=== PATIENT | male | born 1990 | race Caucasian/White ===

== ENCOUNTER 2022-10-11 15:08 | Outpatient (CLI) | payer BC, SELFPAY ==
--- NOTE | ~2022-10-11 | XR_ITS ---
EXAMINATION: XR knee RT min 4V, XR knee LT min 4V DATE: 10/11/2022 15:42 INDICATION: Bilateral knee pain TECHNIQUE: 1. Anteroposterior, 2 oblique and crosstable lateral views of the left knee were obtained 2. Anteroposterior, 2 oblique and crosstable lateral views of the right knee were obtained COMPARISON: None. FINDINGS: Alignment is normal at both knees. No fracture. Joint spaces appear normal on nonweightbearing imagi ng. At the right knee is a 1.8 x 1.4 cm lytic lesion with thin sclerotic margins at the lateral inter condylar eminence likely representing an intraosseous ganglion cyst or geode. No joint effusion/layer ing lipohemarthrosis at either the left or right knee. Soft tissues are unremarkable. IMPRESSION: 1. Negative left knee radiographs. 2. 1.8 x 1.4 cm cystic lesion at the lateral intercondylar eminence of the right knee most likely eit her degenerative chondral cyst or intraosseous ganglion cyst which could arise from the tibial roots of one of the menisci or cruciate ligaments. Reviewed, dictated and finalized at location A. SWARE SELECTOR IMPRESSION: 1. Negative left knee radiographs. 2. 1.8 x 1.4 cm cystic lesion at the lateral intercondylar eminence of the righ t knee most likely either degenerative chondral cyst or intraosseous ganglion c yst which could arise from the tibial roots of one of the menisci or cruciate l igaments.
== END 2022-10-11 15:09 | disposition home or self-care (01) ==
LOC: ANHIMG 15:11
PROVIDERS: PCP Family Medicine; Visit Provider Nurse Practitioner Family
DX: M25.569 Pain in unspecified knee (principal); G89.29 Other chronic pain; R93.6 Abnormal findings on diagnostic imaging of limbs
CPT/HCPCS: 73564

== ENCOUNTER 2025-06-03 15:09 | Outpatient (CLI) | payer BC, SELFPAY ==
--- NOTE | ~2025-06-03 | XR_ITS ---
EXAMINATION: XR knee LT min 4V, 06/03/2025 15:12 CDT HISTORY: M25.562 - Pain in left knee COMPARISON: No comparisons available. Findings: No acute fracture or malalignment. No significant degenerative changes. Soft tissues unremarkable. Impression: No acute fracture or malalignment. Reviewed, dictated and finalized at location P. Impression: No acute fracture or malalignment.
== END 2025-06-03 15:10 | disposition home or self-care (01) ==
LOC: MICIMG 15:10
PROVIDERS: PCP Family Medicine; Visit Provider Nurse Practitioner Family
DX: M25.562 Pain in left knee (principal)
CPT/HCPCS: 73564

== ENCOUNTER 2025-06-14 13:23 | Outpatient (CLI) | payer BC, SELFPAY ==
--- NOTE | ~2025-06-14 | MR_ITS ---
EXAMINATION: MR knee LT wo con DATE: 06/14/2025 14:12 INDICATION: Medial left knee pain. TECHNIQUE: Magnetic resonance imaging (MRI) of the left knee was performed without intravenous contrast. Sequences included axial PD-weighted FS FSE, coronal PD-weighted FSE and PD-weighted FS FSE, sagittal PD-weighted FSE, and sagittal T2-weighted FS FSE. COMPARISON: Left knee radiographs 06/03/2025 FINDINGS: Medial compartment: There is an undersurface horizontal tear involving body and posterior horn of medial meniscus. There is cartilage surface irregularity of tibial condyle and femoral condyle. Osteophytes are noted. Lateral compartment: Lateral meniscus is normal. Lateral compartment cartilage is normal. There are tiny osteophytes. Patellofemoral compartment: There is deep partial-thickness cartilage loss of patellar lateral facet. Trochlear cartilage is normal. There are tiny osteophytes. Ligaments and tendons: The anterior and posterior cruciate ligaments are normal. There is a sprain of medial collateral ligament characterized by thickening and increased signal intensity proximally and surrounding edema. There are changes of prior sprain of lateral collateral ligament characterized by thickening and increased signal intensity proximally. There is mild patellar tendinopathy. Fluid: There is a small knee joint effusion. There is a small Ni's cyst. There is mild prepatellar and superficial infrapatellar bursitis. IMPRESSION: 1. Moderate chondrosis of patellofemoral compartment and mild chondrosis of medial compartment. 2. Tear of medial meniscus. 3. Mild sprain of medial collateral ligament (grade 2). Reviewed, dictated and finalized at location E. IMPRESSION: 1. Moderate chondrosis of patellofemoral compartment and mild chondrosis of med ial compartment. 2. Tear of medial meniscus. 3. Mild sprain of medial collateral ligament (grade 2).
== END 2025-06-14 13:24 | disposition home or self-care (01) ==
LOC: MICIMG 13:24
PROVIDERS: PCP Family Medicine; Visit Provider Nurse Practitioner Family
DX: M25.462 Effusion, left knee (principal); S83.242D Other tear of medial meniscus, current injury, left knee, subsequent encounter; S83.412D Sprain of medial collateral ligament of left knee, subsequent encounter; X58.XXXD Exposure to other specified factors, subsequent encounter
CPT/HCPCS: 73721

== ENCOUNTER 2025-07-07 00:44 | Day surgery (SDC) | payer BC, SELFPAY ==
--- NOTE | 2025-07-01 10:52 | SUR.PREOP ---
[facility] has started construction of its new state of the art ER which will open Spring 2026. With this, we anticipate parking may be a challenge for some our surgical patients and families. Parking spaces are limited but are available for all Surgical, obstetrics, and ER patients sharing this lot. If you arrive and find you are having a hard time finding a parking space, please note that we understand the challenges, please drive around the hospital and park near Hospital Entrance 1. When you enter this entrance, you can ask a volunteer to direct or take you back to the surgical waiting area to check in. We appreciate everyone?s understanding of these expected challenges while we build for your future. Report to the Outpatient Waiting Room, entrance under the green pavilion located off [address], at time _9AM__ on date __07/07/25__. Planned Procedure Time: _11AM__.? Time changes happen often and if your time is changed the preop area will call you the afternoon before. - You and your visitor will be asked to self-screen and do not enter if you have any COVID symptoms. Please call surgeon if you need to reschedule. - A mask is optional within the hospital at this time. Patients may have clear liquids (water, carbonated beverages, clear teas, apple juice) until 3 hours prior to surgery with a maximum of 20 ounces. - No food from midnight until time of surgery and no smoking, or chewing tobacco (or any form of nicotine). No chewing gum, candy or mints. Take only the following medications with a SIP of water on the morning of surgery: _None__ DO NOT STOP ANY OF YOUR OTHER PRESCRIPTION MEDICATIONS PRIOR TO SURGERY EXCEPT THE FOLLOWING Hold all vitamins and supplements for 3 days per anesthesiologist. Medications to discontinue per physician _consult provider regarding meloxicam regimen__ Date to take last dose__07/03/25__ Please no make-up, nail greek, hairspray, perfume, deodorant, or body powder the day of surgery.? No jewelry (including any body piercings) or valuables the day of surgery, leave them at home.? Please take a shower or bath the night before, or the morning of, surgery with an antibacterial soap.? Wear comfortable, loose fitting clothing.? - Jewelry must be removed prior to entering the operating room.? Rings and piercings that are not removed may be cut off. - The hospital will not accept responsibility for valuables.? - Please leave all valuables, including medications, at home the day of surgery. If you are going home after surgery, a licensed dedicated truck driver must drive you home.? - NO public transportation without another adult if you receive anesthesia. - We recommend that an adult stay with you for 24 hours following discharge. - We also recommend that you do not drive, make important decision, drink alcoholic beverages, or take any drugs that were not prescribed by your health care provider for at least 24 hours after your discharge time. Follow any additional instructions given to you from your surgeon. Telephone instructions given to __Jake__and asked if any additional questions and then verbalized understanding. Patient advised to call surgeon office or pre surgery nurse liaison [phone] if any additional questions.
[2025-07-01 10:57] VITALS: BMI 35.4
[2025-07-07] VITALS (8 sets, daily range): BP systolic 127–152; BP diastolic 66–75; PULSE 53–90; RESP 13–20; TEMP 36.3–36.6; O2SAT 91–99; BMI 35.2
--- OUTSIDE RECORDS SUMMARY | 2025-07-07 00:47 | XMS_ITS | Clinical Summary ---
Author Organization [facility] Address [address] [place] [id number] Care Team Providers Care Vp Scientific Name Role Phone Unknown, Notinfile Primary Care Provider Unavail able Allergies No known active allergies Medications albuterol HFA (PROVENTIL HFA,VENTOLIN HFA,PROAIR HFA) 90 mcg/actuation inhaler Inhale 1-2 puffs every 4 (four) hours as needed 10/22/2018 Active Active Problems Problem Noted Date Diagnosed Date Flu-like symptoms 10/22/2018 Social History Tobacco Use Types Packs/Day Years Used Date Smoking Tobacco: Never Assessed Sex and Gender Information Value Date Recorded Sex Assigned at Not on file 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 Gender Identity Not on file Sexual Orientation Not on file Last Filed Vital Signs Vital Sign Reading Time Taken Comments Blood Pressure 142/84 09/04/2021 10:40 AM CHAIN HOIST OPERATOR Pulse 82 09/04/2021 10:40 AM CHAIN HOIST OPERATOR Temperature 36.9 C (98.4 F) 09/04/2021 10:40 AM CHAIN HOIST OPERATOR Respiratory Rate 18 09/04/2021 10:40 AM CHAIN HOIST OPERATOR Oxygen Saturation 97% 09/04/2021 10:40 AM CHAIN HOIST OPERATOR Inhaled Oxygen Concentration - - Weight 136.1 kg (300 lb) 09/04/2021 10:40 AM CHAIN HOIST OPERATOR Height - - Body Mass Index - - Plan of Treatment Not on [place] [id number] [place] [employer]F P[place] [facility] OOS Care Teams Vp Scientific Relationship Specialty Start Date End Date Unknown, Notinfile PCP - General 12/11/18
--- OUTSIDE RECORDS SUMMARY | 2025-07-07 00:47 | XMS_ITS | Clinical Summary ---
Author Organization [facility] Address [address] [place] [address] Phone Care Team Providers Care National Account Manager Name Role Phone Provider, Unknown Primary Care Provider Unavaila ble Allergies No known active allergies Medications albuterol 108 (90 Base) MCG/ACT Aerosol Solution take 1-2 Puffs by inhalation every 4 hours as needed for Wheezing. 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 Gender Identity Not on file Sexual Orientation Not on file Last Filed Vital Signs Vital Sign Reading Time Taken Comments Blood Pressure 130/70 10/22/2018 8:29 AM PIG FURNACE OPERATOR Pulse 90 10/22/2018 8:29 AM PIG FURNACE OPERATOR Temperature 37.6 C (99.6 F) 10/22/2018 8:29 AM PIG FURNACE OPERATOR Respiratory Rate 16 10/22/2018 8:29 AM PIG FURNACE OPERATOR Oxygen Saturation 97% 10/22/2018 8:29 AM PIG FURNACE OPERATOR Inhaled Oxygen Concentration - - Weight 122.5 kg (270 lb) 10/22/2018 8:29 AM PIG FURNACE OPERATOR Height 193 cm (6' 4) 10/22/2018 8:29 AM PIG FURNACE OPERATOR Body Mass Index 32.87 10/22/2018 8:29 AM PIG FURNACE OPERATOR Plan of Treatment Health Maintenance Due Date Last Done Comments Hepatitis C Virus (HCV) Screening 1989 TdaP Immunization 1989 Hepatitis B Immunization (1 of 3 - 19+ 3-dose series) 2008 Human Papillomavirus (HPV) Immunization (1 - 3-dose SCDM series) 2016 Influenza Immunization (#1) 2025 SARS-COV-2 Immunization (1 - 2023- season) 2025 Respiratory Syncytial Virus (RSV) Immunization (Adult) (1 - 1-dose 75+ series) 2064 Meningococcal Immunization (ACWY) Aged Out No longer eligible based on patient's age to complete this topic Pneumococcal Immunization Combined Aged Out No longer eligible based on patient's age to complete this topic Rotavirus Immunization Aged Out No lo nger eligible based on patient's age to complete this topic Insurance [facility] Care Teams National Account Manager Relationship Specialty Start Date End Date Provider, Unknown UNKNOWN PCP - General 10/22/18
[2025-07-07] MEDS: LACTATED RINGERS 1,000 ML 30 ML IV CONT ×2 (06:35→09:17)
[2025-07-07] MEDS: CELECOXIB 200 MG CAPSULE PO (06:44)
[2025-07-07] MEDS: ACETAMINOPHEN 500 MG TABLET 1000 MG PO (06:44)
--- NOTE | 2025-07-07 07:24 | WPDHPUPDATE1 ---
History and Physical Update Update Date/Time: 07/07/25 07:24 History and Physical has been reviewed, including an updated exam of the patient. There are NO changes in the patient's condition. Risks, benefits, and alternatives have been discussed and questions answered. Patient agrees to proceed with procedure.
--- NOTE | 2025-07-07 07:26 | P.PNAN_ITS ---
Anes - Initial Pre Proc Eval Procedure: Operation Date: 07/07/25 07:30 Proposed Procedures p Left Knee Arthroscopy, Proceed As Indicated - Issa Perez MD Date/Time: 07/07/25 07:26 Surgeon: Issa Perez MD Pre Op Diagnosis: left knee medial meniscus tear Patient Data Age: 34 Gender: M Height: 1.93 m Weight: 131.5 kg Last Vital Signs Temp 97.9 F 07/07/25 06:05 Pulse 53 L 07/07/25 06:05 Resp 18 07/07/25 06:05 BP 143/66 H 07/07/25 06:05 Pulse Ox 98 07/07/25 06:05 O2 Del Method Room Air 07/07/25 06:05 Allergies Allergy/AdvReac Type Severity Reaction Status Date / Time amoxicillin Allergy Unknown Rash Verified 07/07/25 06:18 iodine Allergy Unknown Rash Verified 07/07/25 06:18 vancomycin Allergy Unknown Rash Verified 07/07/25 06:18 Home Medications ?Medication ?Instructions ?Recorded ?Confirmed ?Type tadalafil 2.5 mg tablet (Cialis) 2.5 mg PO DAILY 03/0207/07/25 History omeprazole 20 mg capsule,delayed 20 mg PO DAILY #90 ca ps 06/21/25 07/07/25 Rx release chlorhexidine gluconate 4 % 1 applic topical ONCE #237 mL 06/30/25 07/07/25 Rx topical liquid (Hibiclens) cetirizine 10 mg tablet (24Hour 10 mg PO DAILY PRN all ergy 07/01/25 07/01/25 History Allergy) clomiphene citrate 50 mg tablet 25 mg PO ONCE 07/01/25 07/07/25 History (Clomid) lactobacillus combination no.4 3 3,000 mmu cells PO DA MARLON 07/01/25 07/07/25 History billion cell capsule (Probiotic) meloxicam 15 mg tablet 15 mg PO DAILY #30 tabs 11/2407/07/25 Rx Patient hx anesthesia problems: none Family hx anesthesia problems: none Results Review: All pre-operative results and documents have been reviewed as part of the pre- operative evaluation. [facility] Past Medical History Medical History History of stress test BMI 36.0-36.9,adult BMI 37.0-37.9, adult BMI 33.0-33.9,adult Surgical History Surgical History History of tooth extraction (~2012) Family History Family History Grandparent Hypertension Family history of coronary artery disease Diabetes mellitus Father Obese Hypertension Mother Obese Depression Sibling Diabetes mellitus Social History Social History Years smoked: 2 Smoking status: Former smoker Tobacco type: cigarettes Second hand tobacco smoke exposure: Yes Additional smoking assessment comments: Quit smoking at 20 years of age Alcohol intake: current Alcohol use details: 1 every 2 months Substance use: never Substance use type: does not use Do You Feel Safe in your Home?: Yes Lack of Transportation: No Lack of Food: Never True Current Housing: I Have Housing Concerned About Future Housing: No Difficulty Paying Gas/Electric Bills: No Difficulty Paying for Meds: No Currently Unemployed: No Education: Trade/Vocational Certificate Difficulty w/ Childcare or Family Care: No Living arrangements: with family Occupation/Education: occupation 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 Informed Consent: The patient's anesthetic plan and its attendant risks and benefits were discussed with the patient/family/POA. Questions were solicited and answers provided to the satisfaction of the patient/family/POA.
[2025-07-07] MEDS: ceFAZolin 3 GM/D5W 100 ML 100 ML IVPB (07:32)
--- NOTE | 2025-07-07 08:59 | W.PM.PROC2 ---
Procedure Note - Detailed Date of Procedure 07/07/25 Pre-op Diagnosis left knee medial meniscus tear Post-op Diagnosis Other (LEFT MEDIAL AND LATERAL MENISCUS TEAR) Procedure Performed LEFT KNEE SCOPE Surgeon Issa Perez MD Anesthesia General Description of Procedure PATIENT WAS TAKEN TO THE OR. THE LEFT LEG WAS PREPPED AND DRAPED STERILE. TROCARS WERE PLACED IN THE USUAL FASHION. CAMERA WAS INTRODUCED. THERE WAS CHONDROMALACIA TO THE PATELLA FEMORAL JOINT. THERE WAS A LOT OF SYNOVITIS IN ALL COMPARTMENTS. THE MEDIAL COMPARTMENT SHOWED CHONDROMALACIA TO THE MEDIAL FEMORAL CONDYLE. A SHAVER WAS USED TO PREFORM A CHONDROPLASTY. THERE WAS A COMPLEX MEDIAL MENISCUS TEAR. THE TEAR WAS RESECTED WITH A BITER AND A SHAVER DOWN TO A SMOOTH BASE. THE ACL WAS INTACT. THE LATERAL MENISCUS WAS NOT TORN. THE LATERAL COMPARTMENT HAD MINIMAL CHONDROMALACIA AT THE LATERAL PLATEAU. CHONDROPLASTY WAS PREFORMED. A SYNOVECTOMY WAS PREFORMED WELL. THE PATELLO FEMORAL JOINT UNDERWENT CHONDROPLASTY. THERE WAS GRADE 2 CHONDROMALACIA IN PART OF THE TROCHLEA AND PART OF THE PATELLA. SYNOVECTOMY WAS PREFORMED IN THE SUPERIOR MEDIAL COMPARTMENT. THE WOUNDS WERE APPROXIMATED WITH 4.0 NYLON. STERILE DRESSING WAS APPLIED. PATIENT WAS EXTUBATED. Estimated Blood Loss 5 Complications No immediate complications Condition Stable Disposition PACU
[2025-07-07] MEDS: fentaNYL CITRATE INJ (*CRX) 100 MCG/2 ML VIAL 25 MCG IV PUSH ×2 (09:21→09:37)
[2025-07-07] MEDS: ONDANSETRON INJ 4 MG/2 ML VIAL IV PUSH (09:28)
[2025-07-07] MEDS: oxyCODONE HCL (*CRX) 5 MG TAB IR PO (10:04)
== END 2025-07-07 10:40 | disposition home or self-care (01) ==
PROVIDERS: PCP Family Medicine; Visit Provider Orthopaedic Surgery
PROC: (CPT 29870; principal; 2025-07-07 07:30)
DX: S83.232A Complex tear of medial meniscus, current injury, left knee, initial encounter (principal); M94.262 Chondromalacia, left knee; M65.862 Other synovitis and tenosynovitis, left lower leg; X50.0XXA Overexertion from strenuous movement or load, initial encounter; E66.9 Obesity, unspecified; Z68.35 Body mass index [BMI] 35.0-35.9, adult; Z98.890 Other specified postprocedural states; Z87.891 Personal history of nicotine dependence; Z82.49 Family history of ischemic heart disease and other diseases of the circulatory system
CPT/HCPCS: 29881; A9270; J0690; J1100; J2003; J2250; J2405; J2704; J3010; J7120